=== PATIENT | male | born 1980 | race Caucasian/White ===

== ENCOUNTER 2019-03-26 20:56 | Emergency (ER) | payer BC ==
[~2019-03-26] VITALS: Ht 175.3 cm; Wt 117.9 kg
--- NOTE | 2019-03-26 21:05 | ED.ADGEN ---
Adult General Chief Complaint Chief Complaint ".. 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 but my works up at [facility].. and worried I ve had a stroke...".." They put me on some steroids and antibiotic or anti viral...." HPI HPI Patient is a 38 year old male who presents with right facial weakness. ( CN - VII distribution) since . Pt. states weakness started with ear ache on Rt. Pt. is still able to close his right eye. Distribution of weakness is right facial. Nerve. Does have sensation. No other neural findings. No history of travel. No history of trauma. No history immunosuppression. Patient does chew tobacco. Pt. has hx HTN. Review of Systems Review of Systems Constitutional: Denies fever or chills [] Eyes: Denies change in visual acuity, redness, or eye pain []complaints are right facial weakness HENT: Denies nasal congestion or sore throat []Complaints of Rt. facial weakness ( VII distribution) Respiratory: Denies cough or shortness of breath [] Cardiovascular: No additional information not addressed in HPI [] GI: Denies abdominal pain, nausea, vomiting, bloody stools or diarrhea [] : Denies dysuria or hematuria [] Musculoskeletal: Denies back pain or joint pain [] Integument: Denies rash or skin lesions [] Neurologic: Denies headache, focal weakness or sensory changes [] Endocrine: Denies polyuria or polydipsia [] All other systems were reviewed and found to be within normal limits, except as documented in this note. Family History Family History Noncontributory Current Medications Current Medications See nursing for home meds Allergies Allergies Allergies Coded Allergies Type Severity Reaction Last Updated Verified Penicillins Allergy Unknown 03/26/19 Yes Physical Exam Physical Exam Constitutional: Well developed, well nourished, no acute distress, non-toxic appearance. [] HENT: Normocephalic, atraumatic, bilateral external ears normal, oropharynx moist, no oral exudates, nose normal. []Right facial weakness- CN VII Eyes: PERRLA, EOMI, conjunctiva normal, no discharge. [] Neck: Normal range of motion, no tenderness, supple, no stridor. [] Cardiovascular:Heart rate regular rhythm, no murmur [] Lungs & Thorax: Bilateral breath sounds with apex auscultation [] Abdomen: Bowel sounds normal, soft, no tenderness, no masses, no pulsatile masses. [] Skin: Warm, dry, no erythema, no rash. [] Back: No tenderness, no CVA tenderness. [] Extremities: No tenderness, no cyanosis, no clubbing, ROM intact, no edema. [] Neurologic: Alert and oriented X 3, normal motor function, normal sensory func tion, no focal deficits noted. []DTRs +2 patella and brachial. Patient right- hand dominant. Patient ambulatory without problems. Distal sensation and vibratory. AC> BC no lateralization. Psychologic: Affect anxious, judgement normal, mood normal. [] Current Patient Data Vital Signs Vital Signs Date Time Temp Pulse Resp B/P (MAP) Pulse Ox O2 Delivery O2 Flow Rate FiO2 03/26/19 21:10 97.9 79 18 96 Room Air EKG EKG [] Radiology/Procedures Radiology/Procedures [][place] [address] IMAGING REPORT Signed PATIENT: REZA [place] ACCOUNT: [id number] : 1980 LOCATION: ER AGE: 38 SEX: M EXAM STATUS: REG ER ORD. PHYSICIAN: GAGAN DE LEON MD REASON: Rt facial weakness PROCEDURE: CT HEAD WO CONTRAST CT brain without contrast. HISTORY: Right facial weakness CT scan of brain was done without contrast. Sinuses are clear. There is no intracranial hemorrhage or subdural hematoma. There is no mass or shift of the midline. An acute CVA is not identified. Ventricles are normal in size. IMPRESSION: 1. No intracranial hemorrhage or acute finding noted. 2. An acute CVA is not identified. PQRS Compliance Statement: One or more of the following individualized dose reduction techniques were utilized for this examination: 1. Automated exposure control 2. Adjustment of the mA and/or kV according to patient size 3. Use of iterative reconstruction technique Electronically signed by: Iam Murcia MD (03/26/2019 9:43 PM) [facility] DICTATED AND SIGNED BY: IAM MURCIA MD DATE: 03/26/19 5143 CC: KAYLEE LUNA TIMOTHY H MD ~ Course & Med Decision Making Course & Med Decision Making Pertinent Labs and Imaging studies reviewed. (See chart for details). Patient continued facial massages and meds as previous directed. Patient encouraged to stop chewing tobacco. Patient to make sure right eye closure at night or tape eyelid shut. Pt. return if any concerns, Take your HTN meds. . Must follow up. Take meds as previously directed. [] Final Impression Final Impression 1. Lowden Palsy[] Dragon Disclaimer Dragon Disclaimer This electronic medical record was generated, in whole or in part, using a voice recognition dictation system. Discharge Summary Visit Information Final Diagnosis Problems Medical Problems: (1) Fischer palsy Status: Acute Brief Hospital Course Allergies Allergies Coded Allergies Type Severity Reaction Last Updated Verified Penicillins Allergy Unknown 03/26/19 Yes Vital Signs Vital Signs Date Time Temp Pulse Resp B/P (MAP) Pulse Ox O2 Delivery O2 Flow Rate FiO2 03/26/19 21:10 97.9 79 18 96 Room Air Brief Hospital Course Mr. Ny is a 38 old male who presented with rt. facial bells palsy Discharge Information Condition at Discharge: Stable Disposition/Orders: D/C to Home Dragon Disclaimer This chart was dictated in whole or in part using Voice Recognition software in a busy, high-work load, and often noisy Emergency Department environment. It may contain unintended and wholly unrecognized errors or omissions. GAGAN DE LEON MD Mar 26, 2019 21:04
[2019-03-26 21:10] VITALS: BP 185/110
--- NOTE | 2019-03-26 21:46 | RAD ---
CT brain without contrast. HISTORY: Right facial weakness CT scan of brain was done without contrast. Sinuses are clear. There is no intracranial hemorrhage or subdural hematoma. There is no mass or shift of the midline. An acute CVA is not identified. Ventricles are normal in size. IMPRESSION: 1. No intracranial hemorrhage or acute finding noted. 2. An acute CVA is not identified. PQRS Compliance Statement: One or more of the following individualized dose reduction techniques were utilized for this examination: 1. Automated exposure control 2. Adjustment of the mA and/or kV according to patient size 3. Use of iterative reconstruction technique Electronically signed by: Iam Murcia MD (03/26/2019 9:43 PM) [facility]
== END 2019-03-26 22:00 | disposition home or self-care (01) ==
LOC: ER 20:56
DX: G51.0 Bell's palsy (principal); H92.01 Otalgia, right ear; Z88.0 Allergy status to penicillin
CPT/HCPCS: 70450; 99284-25